=== PATIENT | male | born 1990 | race Caucasian/White ===

== ENCOUNTER 2021-12-28 22:14 | Emergency (ER) | payer BC ==
[2021-12-28] MEDS ORDERED: Ketorolac 30 MG/ML SDV IVPUSH ONE (22:29)
[2021-12-28] MEDS ORDERED: Lactated Ringers 1,000 ML IV STA (22:29)
[2021-12-28] MEDS ORDERED: Ondansetron 4 MG/2 ML SDV IVPUSH ONE (22:36)
[2021-12-28 23:07] LABS: BLOOD UREA NITROGEN,BUN 16 mg/dL (7.0-18.0); CARBON DIOXIDE,CO2 22.4 mmol/L (21.0-32.0); CHLORIDE,CL 102 mmol/L (98-107); GLUCOSE RANDOM 123 mg/dL (74-106); POTASSIUM,K 3.8 mmol/L (3.5-5.1); SODIUM,NA 138 mmol/L (136-148)
[2021-12-29] MEDS ORDERED: Lactated Ringers 1,000 ML IV STA (00:14)
[2021-12-29] MEDS ORDERED: Piperacillin/Tazobactam 3.375 GM in Sodium Chloride 0.9% 50 ML IV ONE (00:21)
[2021-12-29] MEDS ORDERED: Iopamidol 755 MG/ML 500 ML Multipack Bottle IVPUSH STA (00:45)
[2021-12-29] MEDS ORDERED: Phytonadione 10 MG in Sodium Chloride 0.9% 50 ML IV ONE (00:47)
[2021-12-29 00:48] LABS: BLOOD UREA NITROGEN,BUN 16 mg/dL (7.0-18.0); CARBON DIOXIDE,CO2 28.3 mmol/L (21.0-32.0); CHLORIDE,CL 103 mmol/L (98-107); GLUCOSE RANDOM 116 mg/dL (74-106); POTASSIUM,K 4.3 mmol/L (3.5-5.1); SODIUM,NA 137 mmol/L (136-148)
[2021-12-29] MEDS ORDERED: HYDROmorphone 1 MG/ML Syringe IVPUSH ONE (02:32)
== END 2021-12-29 02:50 ==
LOC: MW.ED 22:14
DX: N32.89 Other specified disorders of bladder (principal); N39.0 Urinary tract infection, site not specified; D68.9 Coagulation defect, unspecified; Z20.822 Contact with and (suspected) exposure to COVID-19; Z88.0 Allergy status to penicillin
CPT/HCPCS: 36415; 51798; 74176; 74177; 80048; 80053; 81001; 83605; 85025; 85610; 87040; 87635; 93976; 96365; 96367; 96375; 99285; J1170; J1885; J2405; J2543; J3430; J3490; J7120; Q9967; U0002

== ENCOUNTER 2022-01-18 13:44 | Emergency (ER) | payer BC ==
[2022-01-18] MEDS ORDERED: Sodium Chloride 0.9% 2.5 ML Syringe FLUSH PRN (15:05)
[2022-01-18] MEDS ORDERED: Sodium Chloride 0.9% 10 ML Syringe FLUSH PRN (15:05)
[2022-01-18] MEDS ORDERED: cefTRIAXone 1 GM in Sodium Chloride 0.9% 50 ML IV ONE (15:53)
[2022-01-18 16:05] LABS: BLOOD UREA NITROGEN,BUN 14 mg/dL (7.0-18.0); CARBON DIOXIDE,CO2 25.4 mmol/L (21.0-32.0); CHLORIDE,CL 101 mmol/L (98-107); GLUCOSE RANDOM 93 mg/dL (74-106); LIPASE 105 U/L (73-393); POTASSIUM,K 3.5 mmol/L (3.5-5.1); SODIUM,NA 136 mmol/L (136-148)
[2022-01-18 16:16] LABS: CORONAVIRUS COVID-19 NAA NEGATIVE (NEGATIVE); INFLUENZA A NAA NEGATIVE (NEGATIVE); INFLUENZA B NAA NEGATIVE (NEGATIVE)
[2022-01-18] MEDS ORDERED: Iopamidol 755 MG/ML 500 ML Multipack Bottle IVPUSH ONE (17:59)
== END 2022-01-18 22:10 | disposition home or self-care (01) ==
LOC: MW.ED 13:44
DX: N30.01 Acute cystitis with hematuria (principal); I26.94 Multiple subsegmental thrombotic pulmonary emboli without acute cor pulmonale; Z20.822 Contact with and (suspected) exposure to COVID-19; Z79.01 Long term (current) use of anticoagulants; Z86.16 Personal history of COVID-19
CPT/HCPCS: 0240U; 36415; 71045; 71275; 74177; 80053; 81001; 83690; 84484; 85025; 87086; 93005; 96365; 99285; J0696; J3490; Q9967

== ENCOUNTER 2022-03-12 08:52 | Emergency (ER) | payer BC ==
[2022-03-12 11:06] LABS: BLOOD UREA NITROGEN,BUN 16 mg/dL (7.0-18.0); CHLORIDE,CL 104 mmol/L (98-107); GLUCOSE RANDOM 106 mg/dL (74-106); POTASSIUM,K 3.8 mmol/L (3.5-5.1); SODIUM,NA 140 mmol/L (136-148)
[2022-03-12 11:12] LABS: ESTIMATED GFR 116 mL/min (>60)
[2022-03-12] MEDS ORDERED: Iopamidol 755 MG/ML 500 ML Multipack Bottle IVPUSH STA (11:55)
[2022-03-12] MEDS ORDERED: Ciprofloxacin 500 MG Tab PO ONE (14:23)
== END 2022-03-12 14:36 | disposition home or self-care (01) ==
LOC: MW.ED 08:52
DX: I27.82 Chronic pulmonary embolism (principal); L03.90 Cellulitis, unspecified; R74.01 Elevation of levels of liver transaminase levels; Z86.16 Personal history of COVID-19; Z79.01 Long term (current) use of anticoagulants; Z88.0 Allergy status to penicillin; Z20.822 Contact with and (suspected) exposure to COVID-19
CPT/HCPCS: 36415; 71045; 71275; 80053; 84484; 85025; 85652; 85730; 86140; 87040; 87635; 93005; 93971; 99285; Q9967; U0002